=== PATIENT | female | born 1995 | race Caucasian/White ===

== ENCOUNTER 2017-08-02 02:56 | Emergency (ER) | payer MEDICAID ==
[2017-08-02 03:07] VITALS: RESP 16
[2017-08-02] MEDS ORDERED: KETOROLAC 15 MG/1 ML SDV IVP ONE (04:04)
[2017-08-02] MEDS ORDERED: DEXAMETHASONE 10 MG/ML VIAL IVP ONE (04:04)
[2017-08-02] MEDS ORDERED: HALOPERIDOL LACT 5 MG/ML INJ IVP ONE (04:04)
[2017-08-02] MEDS ORDERED: NS 1,000 ML IV ONE (04:05)
--- NOTE | 2017-08-02 04:07 | EDPHY ---
H & P Stated Complaint: Migraine Time Seen by Provider: 08/02/17 03:53 HPI/ROS: Chief Complaint: Headache HPI: 22-year-old female woke this morning at about 130 with a headache. Is about a 10/10, is now down to a 5/10 without any medications. Positive photophobia. She did vomit once. Last menstrual. Was about 10 days ago and was normal. No fevers or chills. No neck pain or stiffness. No recent injuries but did have concussion in May and June when she hit her head on a bookshelf. No hearing or vision changes. No bright lights or flashers. ROS: 10 point Review of Systems is negative except as noted in the HPI. PMH: Denies Medications: Contraceptives Allergies: No known drug allergies Social History: No smoking, occasional alcohol, no recreational drug use Family History: non-contributory Physical Exam: Gen: Awake, Alert, No Distress HEENT: Nose: no rhinorrhea Eyes: PERRLA, EOMI Mouth: Moist mucosa Neck: Supple, no JVD Chest: nontender, lungs clear to auscultation Heart: S1, S2 normal, no murmur Abd: Soft, non-tender, no guarding Back: no CVA tenderness, no midline tenderness Ext: no edema, non-tender Skin: no rash Neuro: CN II-XII intact, Sensation grossly intact, Strength 5/5 in bilateral upper and lower extremities - Personal History Current Tetanus/Diphtheria Vaccine: Unsure Current Tetanus Diphtheria and Acellular Pertussis (TDAP): Unsure - Medical/Surgical History Hx Asthma: No Hx Chronic Respiratory Disease: No Hx Diabetes: No Hx Cardiac Disease: No Hx Renal Disease: No Hx Cirrhosis: No Hx Alcoholism: No Hx HIV/AIDS: No Hx Splenectomy or Spleen Trauma: No Other PMH: Concussion. - Social History Smoking Status: Never smoked Constitutional: Initial Vital Signs Temperature (C) 36.7 C 08/02/17 03:01 Heart Rate 75 08/02/17 03:01 Respiratory Rate 16 08/02/17 03:01 Blood Pressure 112/71 08/02/17 03:01 O2 Sat (%) 96 08/02/17 03:01 O2 Delivery Mode Room Air Medical Decision Making ED Course/Re-evaluation: Patient's headache is improved. Will discharge with follow up with primary care , return for worsening. Headache was not thunderclap onset. Not the worst headache of her life. There are no red flags for intracranial bleed or infection. - Data Points Medications Given: Discontinued Medications Dexamethasone (Decadron Injection) 10 mg IVP EDNOW ONE Stop: 08/02/17 04:05 Last Admin: 08/02/17 04:18 Dose: 10 mg Diphenhydramine HCl (Benadryl Injection) 25 mg IVP EDNOW ONE Stop: 08/02/17 04:05 Last Admin: 08/02/17 04:10 Dose: 25 mg Haloperidol Lactate (Haldol Injection) 2.5 mg IVP EDNOW ONE Stop: 08/02/17 04:05 Last Admin: 08/02/17 04:12 Dose: 2.5 mg Sodium Chloride (Ns) 1,000 mls @ 0 mls/hr IV ONCE ONE; Wide Open PRN Reason: Protocol Stop: 08/02/17 04:06 Last Admin: 08/02/17 04:10 Dose: 1,000 mls Ketorolac Tromethamine (Toradol) 15 mg IVP EDNOW ONE Stop: 08/02/17 04:05 Last Admin: 08/02/17 04:16 Dose: 15 mg Departure - Departure Disposition: Home, Routine, Self-Care Clinical Impression: Headache Condition: Good Instructions: Acute Headache (ED) Additional Instructions: Return to the emergency department for increasing headache, fevers, chills, nausea, vomiting, or any other concerns. Follow up with primary care physician in 2-3 days. Referrals: Thania Alonso MD [Medical Doctor] - As per Instructions
[2017-08-02 05:08] VITALS: BP 110/98; PULSE 74; TEMP 98.2; O2SAT 97
== END 2017-08-02 05:07 | disposition home or self-care (01) ==
DX: R51 Headache (principal); E86.9 Volume depletion, unspecified
CPT/HCPCS: 96374; J1100; J1200; J1885